=== PATIENT | female | born 1975 | race African-American/Black ===

== ENCOUNTER 2025-03-02 11:12 | Outpatient (AMB) | payer OTHER, SELFPAY ==
--- NOTE | 2025-03-02 11:17 | MHC.PC.OV ---
Vital Signs 03/02/25 11:18 Height 5 ft 1.02 in Weight 124 lb BMI 23.4 BP 106/76 Blood Pressure Location Lt brachial Position Sitting Respiration 14 Pulse 66 Pulse Source Pulse Oximeter Temp 97.9 F Temp Source Oral Pulse Oximetry (%) 100 Oxygen Delivery Method Room Air Intake Visit Reasons: BUCK from [facility]/ [facility] Intake Note: New patient visit Bioinformatics Specialist Required: No Allergies animal dander Allergy (Unknown, Verified 03/02/25 10:57) Unknown shellfish derived Allergy (Unknown, Verified 03/02/25 10:57) Unknown avocodo Allergy (Unknown, Uncoded 03/02/25 10:57) Unknown Medication List - Last Reconciled 03/02/25 by Soni Torres PA-C albuterol sulfate 90 mcg/actuation (Ventolin HFA) 2 puffs inhalation Q6H PRN fluticasone propionate 50 mcg/actuation 2 sprays intranasal DAILY PRN hydroxyzine HCl 25 mg PO TID levothyroxine 25 mcg PO DAILY lorazepam 1 mg PO DAILY meloxicam mg PO DIRECTED pantoprazole 40 mg PO DAILY sertraline 25 mg PO DAILY Tobacco use date assessed: 03/02/25 Dental Screening Dental Screen Date: 03/02/25 Did you have a dental visit in the last 12 months?: Yes Did you have a dental problem in the last 6 months where you did not have access to dental care?: No Was dental information given to patient?: Patient has dentist HPI BUCK from [facility]/ [facility] HPI Details Patient is a 49-year-old female who presents today to [facility]. She is transferring from [facility]. Reports a significant past medical history of anxiety, food allergies, GERD, generalized anxiety, liver lesion, hypothyroidism. She was seen recently in the ER on 01/19/2025 for presyncope. She was then followed by her [facility] PCP on 02/02/2025. She had a referral to Neurology in [facility]. She also had a sleep study ordered for her insomnia in his 7 day Zio monitor ordered and a Cardiology consult placed. CV: Blood pressure today in the office is 106/76. She completed zio 2 weeks ago. she does not yet have results. She has not been scheduled with cardiology. She had a normal echo in 2022. MRI brain, 08/21/2024-impression: 1. No acute/subacute infarct, mass, hemorrhage or other acute intracranial abnormality 2. Minimal T2/FLAIR hyperintense foci in the white matter, nonspecific but most likely reflecting saw vessel disease CT angio head and neck: Impression: No proximal occlusion or high-grade stenosis in the major arteries of the head or neck Neuro: she gets these episodes of feeling very weak and lightheaded. She states she has to lay down and her eyes are open but feels unable to respond. Feels almost paralyzed and states will feel weak after for a couple hours. She did see neuro locally who thought it was stress induced or related to her thyroid. Her thyroid has been well controlled and she did not feel stressed the last time it happened. She had just eaten lunch. She does not know what triggered but it has happened at least 5 x in the last few years. No bowel or bladder incontinence. She's scheduled with [facility]. Psych: still really struggling with falling asleep and staying asleep. Hydroxyzine is somewhat effective. She does not like having to take anything. Msk: left hip pain and lumbar pain for the last year or so. She did have an MRI showing disc herniation. She has tried an epidural injection and states that it caused constant pain. States that she will never follow with [facility] again but is interested in a 2nd opinion. Document Advisor: UTD- interested in hrt Mammo: within last 6 months Colonoscopy: 2021 fam hx: father prostate, maternal grandmother cervical ca, maternal uncle colon ca, maternal uncle pancreatic, maternal aunt breast cancer, paternal aunt breast ca PFSH Medical History (Updated 03/02/25 @ 11:47 by Soni Torres PA-C) H/O mammogram Surgical History (Updated 03/02/25 @ 10:58 by Tatiana Parker CMA) H/O endoscopy H/O section H/O colonoscopy Family History (Updated 03/02/25 @ 10:55 by Tatiana Parker CMA) Father FH: prostate cancer Mother AA (alcohol abuse) Fibroid Maternal Grandmother Cancer Stroke Other Cancer of breast Substance abuse Social History Housing: House Patient Tobacco Use Status: Never used Tobacco e-Cigarette/Vaping Use: Never Used Second Hand Smoke Exposure: No service: No Current occupational status: employed Current occupation: Manager [employer] Current occupational exposures/hazards: Yes Cognitive needs: No Hearing needs: No Vision needs: No Questionnaire PHQ-9 Over the last 2 weeks, how often have you been bothered by any of the following problems? 1. Little interest or pleasure in doing things: several days 2. Feeling down, depressed, or hopeless: several days 3. Trouble falling or staying asleep, or sleeping too much: several days 4. Feeling tired or having little energy: several days 5. Poor appetite or overeating: not at all 6. Feeling bad about yourself - or that you are a failure or have let yourself or your family down: not at all 7. Trouble concentrating on things, such as reading the newspaper or watching television: several days 8. Moving or speaking so slowly that other people could have noticed. Or the opposite - being so fidgety or restless that you have been moving around a lot more than usual: not at all 9. Thoughts that you would be better off or of hurting yourself in some way: not at all Total score: 5 Source: Developed by Drs. Jaguar Early, Taylor Lutz, Cecilio Mcnamara and colleagues, with an educational frank from [employer]. Thrive Questionnaire I am a: Patient What is your living situation today?: I have a steady place to live Within the past 12 months, did the food you bought not last and you didn't have the money to get more?: Never true Within the past 12 months, did you worry whether your food would run out before you got money to buy more?: Never true Do you have trouble paying for medicines?: No Do you have trouble getting transportation to medical appointments?: No Do you have trouble paying your heating and electricity bill?: No Do you have trouble taking care of your child, family member or friend?: No Do you have trouble with day-to-day activities such as bathing, preparing meals, shopping, managing finances, etc.?: No Are you currently unemployed and looking for a job?: No Are you interested in more education?: No Please select the resources that you would like help with: None Currently or been in a relationship where the following occur: No concerns reported THRIVE Score: 0 AUDIT C Alcohol Use Questionnaire (AUDIT-C) 1. How often do you have a drink containing alcohol?: Never 3. How often do you have six or more drinks on one occasion?: Never Total Score: 0 LOURDES-7 AMB Questionnaire LOURDES-7 Date LOURDES - 7 assessed: 03/02/25 Feeling nervous, anxious, or on edge: 1 = Several days Not being able to stop or control worryin = More than half the days Worrying too much about different things: 2 = More than half the days Trouble relaxin = Several days Being so restless that it is hard to sit still: 0 = Not at all Becoming easily annoyed or irritable: 1 = Several days Feeling afraid as if something awful might happen: 1 = Several days Total LOURDES-7 score (0-4 normal; 5-9 mild; 10-14 moderate; 15-21 severe): 8 Source: Developed by Drs. Jaguar Early, Taylor Lutz, Cecilio Mcnamara and colleagues, with an educational frank from [employer]. Physical exam (Primary Care) Vital Signs: Last Vital Signs Temp 97.9 F 03/02/25 11:18 Pulse 66 03/02/25 11:18 Resp 14 03/02/25 11:18 BP 106/76 03/02/25 11:18 Pulse Ox 100 03/02/25 11:18 Oxygen Delivery Method Room Air 03/02/25 11:18 BMI result Body Mass Index 23.4 Tobacco/Smoking Status: Tobacco use Status Tobacco use date assessed 03/02/25 03/02/25 11:21 Patient Tobacco Use Status Never used Tobacco 03/02/25 11:21 e-Cigarette/Vaping Use Never Used 03/02/25 11:21 PHQ-9: PHQ-9 Score PHQ-9: Total score 5 03/02/25 11:21 Currently or been in a relationship where the following occur: No concerns reported Const Orientation/consciousness: patient oriented x3 HENMT Ears: hearing grossly normal bilaterally Neck Thyroid: Thyroid normal Lymphatic: no lymphadenopathy noted Resp Auscultation: clear to auscultation bilaterally Cardio Rate: regular rate Rhythm: regular rhythm Heart sounds: S1 normal heart sound present and S2 normal heart sound present GI Inspection: Yes normal to inspection Palpation (GI): Soft to palpation and Other GI palpation findings present (nontender, no cva tenderness) Auscultation: normoactive bowel sounds Rectal Exam - Female: deferred Skin General skin exam: no rashes or lesions noted Neuro General: patient oriented x3, gait normal and no focal motor deficits Coding Level of Care Code New Pt Level 4 (44455) Complex EM visit Add On G2211 Diagnoses Pre-syncope R55 Lumbar pain with radiation down left leg M54.50; M79.605 Left hip pain M25.552 GERD (gastroesophageal reflux disease) K21.9 Generalized anxiety disorder F41.1 Insomnia G47.00 Assessment & Plan Assessment & Plan (1) Pre-syncope: Code(s): R55 - Syncope and collapse Category: Medical Plan: seeing neurology in May Has been referred to Cardiology. Recently were a Zio monitor. Being for test results. labs ordered ? Related to panic. We will try lorazepam if needed. (2) Lumbar pain with radiation down left leg: Code(s): M54.50 - Low back pain, unspecified; M79.605 - Pain in left leg Category: Medical Plan: Referral to physiatry (3) Left hip pain: Code(s): M25.552 - Pain in left hip Category: Medical Plan: As above (4) GERD (gastroesophageal reflux disease): Code(s): K21.9 - Gastro-esophageal reflux disease without esophagitis Category: Medical Plan: Controlled with pantoprazole. Has followed with GI. (5) Generalized anxiety disorder: Code(s): F41.1 - Generalized anxiety disorder Category: Medical Plan: stable Declines using Zoloft. Never actually took this (6) Insomnia: Code(s): G47.00 - Insomnia, unspecified Category: Medical Plan: sleep study pending We will try trazodone. Discussed risks and benefits and adverse effects of this medication. Plan Given significant family history of cancer we will refer to Genetics. Orders: Orders Complete Blood Count Auto Diff Today F41.1 - Generalized anxiety disorder, G47.00 - Insomnia, unspecified, K21.9 - Gastro-esophageal reflux disease without esophagitis, M25.552 - Pain in left hip, M54.50 - Low back pain, unspecified, M79.605 - Pain in left leg, R55 - Syncope and collapse Magnesium Today F41.1 - Generalized anxiety disorder, G47.00 - Insomnia, unspecified, K21.9 - Gastro-esophageal reflux disease without esophagitis, M25.552 - Pain in left hip, M54.50 - Low back pain, unspecified, M79.605 - Pain in left leg, R55 - Syncope and collapse Lipid Panel Today F41.1 - Generalized anxiety disorder, G47.00 - Insomnia, unspecified, K21.9 - Gastro-esophageal reflux disease without esophagitis, M25.552 - Pain in left hip, M54.50 - Low back pain, unspecified, M79.605 - Pain in left leg, R55 - Syncope and collapse IRON PROFILE Today F41.1 - Generalized anxiety disorder, G47.00 - Insomnia, unspecified, K21.9 - Gastro-esophageal reflux disease without esophagitis, M25.552 - Pain in left hip, M54.50 - Low back pain, unspecified, M79.605 - Pain in left leg, R55 - Syncope and collapse Ferritin Today F41.1 - Generalized anxiety disorder, G47.00 - Insomnia, unspecified, K21.9 - Gastro-esophageal reflux disease without esophagitis, M25.552 - Pain in left hip, M54.50 - Low back pain, unspecified, M79.605 - Pain in left leg, R55 - Syncope and collapse Hemoglobin A1c Today E16.2 - Hypoglycemia, unspecified, G47.00 - Insomnia, unspecified, R55 - Syncope and collapse, R73.01 - Impaired fasting glucose Comprehensive [place]. Panel Fast Today F41.1 - Generalized anxiety disorder, G47.00 - Insomnia, unspecified, K21.9 - Gastro-esophageal reflux disease without esophagitis, M25.552 - Pain in left hip, M54.50 - Low back pain, unspecified, M79.605 - Pain in left leg, R55 - Syncope and collapse Vitamin B12 and Folate Today F41.1 - Generalized anxiety disorder, G47.00 - Insomnia, unspecified, K21.9 - Gastro-esophageal reflux disease without esophagitis, M25.552 - Pain in left hip, M54.50 - Low back pain, unspecified, M79.605 - Pain in left leg, R55 - Syncope and collapse TSH reflex Free T4 Today F41.1 - Generalized anxiety disorder, G47.00 - Insomnia, unspecified, K21.9 - Gastro-esophageal reflux disease without esophagitis, M25.552 - Pain in left hip, M54.50 - Low back pain, unspecified, M79.605 - Pain in left leg, R55 - Syncope and collapse UA CC w/rflx Micro + Cult Today F41.1 - Generalized anxiety disorder, G47.00 - Insomnia, unspecified, K21.9 - Gastro-esophageal reflux disease without esophagitis, M25.552 - Pain in left hip, M54.50 - Low back pain, unspecified, M79.605 - Pain in left leg, R30.0 - Dysuria, R55 - Syncope and collapse Microalbumin, Random (w Creat) Today F41.1 - Generalized anxiety disorder, G47.00 - Insomnia, unspecified, K21.9 - Gastro-esophageal reflux disease without esophagitis, M25.552 - Pain in left hip, M54.50 - Low back pain, unspecified, M79.605 - Pain in left leg, R55 - Syncope and collapse Vitamin D 25-OH Total Today F41.1 - Generalized anxiety disorder, G47.00 - Insomnia, unspecified, K21.9 - Gastro-esophageal reflux disease without esophagitis, M25.552 - Pain in left hip, M54.50 - Low back pain, unspecified, M79.605 - Pain in left leg, R55 - Syncope and collapse Insulin Today E16.2 - Hypoglycemia, unspecified, G47.00 - Insomnia, unspecified, R55 - Syncope and collapse Referrals Physiatry Referral M25.552 - Pain in left hip, M54.50 - Low back pain, unspecified, M79.605 - Pain in left leg Genetics Referral Z80.0 - Family history of malignant neoplasm of digestive organs, Z80.3 - Family history of malignant neoplasm of breast Medications: New levothyroxine 25 mcg PO DAILY 90 tabs 3RF pantoprazole 40 mg PO DAILY 90 tabs 2RF trazodone 50 mg PO BEDTIME PRN 90 tabs 0RF sleep lorazepam 0.5 mg PO DAILY PRN 30 tabs 0RF anxiety 30 days
[2025-03-02 11:18] VITALS: BP 106/76; PULSE 66; RESP 14; TEMP 36.6; O2SAT 100; BMI 23.4
--- OUTSIDE RECORDS SUMMARY | 2025-03-02 14:07 | XMS_ITS | Clinical Summary ---
Author Organization [facility] Address [address] [place] [address] Care Team Providers Care Business Intelligence Engineer Name Role Phone Kiesha Jesus MD Primary Care Provider + Allergies No known active allergies Medications No known medications Active Problems Problem Noted Date Diagnosed Date Antiphospholipid antibody positive 06/18/2020 Chronic GERD 10/20/2017 Overview: Overview: Eval 09/2017 Dr. Norman Epigasrtic pain - on PPI Elevated antinuclear antibody (MADELIN) level 2017 Social History Tobacco Use Types Packs/Day Years Used Date Smoking Tobacco: Never Smokeless Tobacco: Never Alcohol Use Standard Drinks/Week Comments No 0 (1 standard drink = 0.6 oz pur e alcohol) Sex and Gender Information Value Date Recorded Sex Assigned at Female 05/25/2020 11:15 AM EST Gender Identity Not on file Sexual Orientation Not on file Last Filed Vital Signs Vital Sign Reading Time Taken Comments Blood Pressure 146/75 06/18/2020 11:46 AM EST Pulse 66 06/18/2020 11:46 AM EST Temperature 36.3 C (97.3 F) 06/18/2020 11:46 AM EST Respiratory Rate - - Oxygen Saturation - - Inhaled Oxygen Concentration - - Weight 59.4 kg (131 lb) 06/18/2020 11:46 AM EST Height 154.9 cm (5' 1 ) 06/18/2020 11:46 AM EST Body Mass Index 24.75 06/18/2020 11:46 AM EST Plan of Treatment Health Maintenance Due Date Last Done Comments Hepatitis B Vaccines (1 of 3 - 3-dose series) 1973 Hepatitis C Screening 1973 Depression Screening 1985 Preventative Health Evaluation 1991 Cervical Cancer Screening (Pap Smear) 1994 Colon Cancer Screening (Colonoscopy) 2018 Breast Cancer Screening (Mammogram) 2023 Shingrix-Zoster Vaccine (1 o f 2) 2023 COVID-19 Vaccine (3 - 2024-2 6 season) 2024 06/01/2020, 05/04/2020 Influenza Vaccine (#1) 2024 DTap / Tdap / Td (2 - Td or Tdap) 12/04/2027 12/03/2017 Pneumococcal Vaccine Aged Out No long er eligible based on patient's age to complete this topic RSV Ped < 20 months Aged Out No longe r eligible based on patient's age to complete this topic Care Teams Business Intelligence Engineer Relationship Specialty Start Date End Date Kiesha Jesus MD [address] [facility] [address] [place] [phone] PCP - General Internal Medicine 06/18/20
--- OUTSIDE RECORDS SUMMARY | 2025-03-02 14:07 | XMS_ITS | Clinical Summary ---
Author Organization [facility] Address [address] [place] [address] [address] [place] [address] Phone Care Team Providers Care Nurseryperson Name Role Phone Yulissa Guillen Primary Care Provider Encounters Date Type Department Care Team Description 02/20/2025 Transcribe Orders [facility] - Virtual Department [address] [place] [address] Yulissa Guillen PA from Last 3 Months Social History Tobacco Use Types Packs/Day Years Used Date Smoking Tobacco: Never Assessed Education Answer Date Recorded Are you interested in more education? Not on sanam e 02/20/2025 Are you concerned about learning? Not on file 02/20/2025 No 02/20/2025 No 02/20/2025 Digital Access Answer Date Recorded No 02/20/2025 No 02/20/2025 Reliable internet access at home? Not on file 02/20/2025 Device with a working camera? Not on file Comments Unknown Sex and Gender Information Value Date Recorded Sex Assigned at Not on file Legal Sex Female 2:11 PM EST Gender Identity Not on file Sexual Orientation Not on file Plan of Treatment Upcoming Encounters Date Type Department Care Team (Late st Contact Info) Description 05/29/2025 1:00 PM EST Office Visit [facility] [address], [address] [place] [address] Stevan Hooks MD [address] [place] [phone] [email or web address] Medical Devices Not on file Insurance [facility] [employer] [facility] Care Teams Nurseryperson Relationship Specialty Start Date End Date Yulissa Guillen PA [address] [place] [address] PCP - General Physician [employer] 02/20/25 03/05/25 Additional Source Comments The information contained in this document represents components of the legal health record. It is not the complete legal health record.[facility]
== END 2025-03-02 12:01 | disposition home or self-care (01) ==
LOC: HO.HMCFM 11:12
PROVIDERS: PCP Physician Assistant; Visit Provider Physician Assistant
DX: R55 Syncope and collapse (principal); M54.50 Low back pain, unspecified; M79.605 Pain in left leg; M25.552 Pain in left hip; K21.9 Gastro-esophageal reflux disease without esophagitis; F41.1 Generalized anxiety disorder; G47.00 Insomnia, unspecified

== ENCOUNTER 2025-03-28 08:37 | Outpatient (REF) | payer OTHER, SELFPAY ==
[2025-03-28 13:35] LABS: Appearance Urine Clear; Glucose Urine UA Negative (Negative); PH 7.0 (5.0-9.0); Specific Gravity - Urine <= 1.005 (1.005-1.025)
[2025-03-28 13:40] LABS: MANUAL DIFF FLAG NO
[2025-03-28 14:01] LABS: Hematocrit 41.7 % (37.0-47.0); Hemoglobin 13.4 g/dl (12.0-16.0); Imm Gran Abs Auto 0.02 X10*3/uL (0.00-0.03); Imm Gran Pct Auto 0.3 % (0.0-0.4); Lymphocytes Absolute Auto 2.0 X10*3/uL (1.2-4.9); Mean Corpuscular HGB Conc 32.1 g/dl (31.0-35.0); Mean Corpuscular Hemoglobin 29.5 pg (27.0-33.0); Mean Corpuscular Volume 91.9 fL (80.0-98.0); NRBC Abs Auto 0.000 X10*3/uL (0.0-0.012); NRBC Pct Auto 0.0 /100WBC (0.0-0.2); Platelet Count 256 X10*3/uL (160-400); Red Blood Count 4.54 X10*6/uL (4.20-5.50); White Blood Count 5.8 X10*3/uL (4.8-10.8)
[2025-03-28 14:31] LABS: Alanine Aminotransferase 8 U/L (0-31); Albumin Level 4.9 g/dL (3.5-5.0); Alkaline Phosphatase 49 U/L (39-117); Anion Gap 9 (12-20); Aspartate Amino Transferase 24 U/L (5-31); Blood Urea Nitrogen 12 mg/dL (9-16); Calcium 9.6 mg/dL (8.4-10.2); Carbon Dioxide 27 mmol/L (22-29); Chloride 108 mmol/L (96-108); Cholesterol 226 mg/dL (<200); Estimated Glomerular Filt Rate > 60; HDL Cholesterol 68 mg/dL (>40); Iron 50 mcg/dL (30-160); Magnesium 2.2 mg/dL (1.6-2.6); Percent Iron Saturation 19 % (15-50); Potassium 4.4 mmol/L (3.3-5.1); Sodium 140 mmol/L (135-145); Total Iron Binding Capacity 262 mcg/dL (228-428); Total Protein 7.9 g/dL (6.5-8.0); Triglycerides 96 mg/dL (<150); Unsaturated Iron Binding 212 ug/dL
[2025-03-28 14:36] LABS: Ferritin 230 ng/mL (10-250)
[2025-03-28 15:21] LABS: Folate 11.1 ng/mL (> or = 4.0); Vitamin B12 560 pg/mL (200-900)
== END 2025-03-28 08:38 | disposition home or self-care (01) ==
LOC: HO.HKASLDS 08:37
PROVIDERS: PCP Physician Assistant; Visit Provider Physician Assistant
DX: M54.16 Radiculopathy, lumbar region (principal); M47.816 Spondylosis without myelopathy or radiculopathy, lumbar region; F41.1 Generalized anxiety disorder; K21.9 Gastro-esophageal reflux disease without esophagitis; M54.50 Low back pain, unspecified; M79.605 Pain in left leg; G47.00 Insomnia, unspecified; R55 Syncope and collapse; M25.552 Pain in left hip; R73.01 Impaired fasting glucose; R30.0 Dysuria; Z13.6 Encounter for screening for cardiovascular disorders
CPT/HCPCS: 36415; 80053; 80061; 81003; 82043; 82306; 82570; 82607; 82728; 82746; 83036; 83525; 83540; 83735; 84443; 85025

== ENCOUNTER 2025-03-28 09:11 | Outpatient (AMB) | payer OTHER, SELFPAY ==
[2025-03-28 09:14] VITALS: BMI 23.4
--- NOTE | 2025-03-28 09:14 | A.PHYSOV ---
Vital Signs 03/28/25 09:14 Height 5 ft 1 in Weight 124 lb BMI 23.4 Intake Visit Reasons: [facility] [place], & left leg & thigh pain Intake Note: Patient is a 49 year old female in office today as new patient for low back pain, left leg and thigh pain. 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 The pain is primarily on the left side in the piriformis area, is worse at night when turning, and is exacerbated by prolonged standing or sitting. She reports the pain limits her ability to work out as she used to. An MRI revealed an L5 disc herniation, and after a subsequent epidural steroid injection, she experienced excruciating pain, leading to an emergency room visit. A follow-up MRI showed an L5-S1 pinched nerve, which was not mentioned prior to the injection, and she has had daily pain ever since. 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 Previous treatments include two courses of physical therapy, with the most recent course completed earlier this year, and spinal decompression, which she stopped after eight weeks due to cost. She has been prescribed meloxicam and gabapentin but does not take them, and she finds no relief from [id number] anti-inflammatory medications like ibuprofen. She remains active, walking 15,000-16,000 steps per day. I reviewed the referring provider's no prior to consultation. Pain Description - Onset: The patient has had consistent daily pain for about four years. - Location: The pain is primarily on the left side, in the piriformis and gluteal area. - Severity: Current pain level is a 4 or 5 out of 10. - Quality: The pain is described as pressure, especially when turning at night. - Radiation: The pain sometimes goes into her leg but does not shoot down. - Exacerbating factors: Exacerbated by prolonged standing or sitting, and turning in bed at night. - Interference with function: The pain prevents her from working out as she did previously. Results - MRI: Findings include an L5 disc herniation and subsequent finding of an L5-S1 pinched nerve, with compression of the left S1 nerve root. [facility] Medical History H/O mammogram Surgical History H/O endoscopy H/O section H/O colonoscopy Family History Father FH: prostate cancer Mother AA (alcohol abuse) Fibroid Maternal Grandmother Cancer Stroke Other Cancer of breast Substance abuse Social History Housing: House Patient Tobacco Use Status: Never used Tobacco e-Cigarette/Vaping Use: Never Used Second Hand Smoke Exposure: No service: No Current occupational status: employed Current occupation: [employer] principle Current occupational exposures/hazards: Yes Cognitive needs: No Hearing needs: No Vision needs: No Review of Systems Narrative Review of Systems - Musculoskeletal: Reports chronic low back pain, primarily on the left side in the piriformis area. - Neurological: Reports a sensation of feeling tilted while standing or walking and occasional, non-radiating pain into her leg. - Sleep: Reports disturbed sleep due to pain when turning at night. - Psychiatric: Reports PTSD from a previous injection procedure. Physical Exam Exam Exam: Physical Exam - Back: No tenderness to palpation over the spine. - Musculoskeletal: Tenderness to palpation over the left lateral/gluteal region. - Range of Motion: Lumbar extension elicits pain. - Neurologic: Motor strength is intact with foot and thigh movements. - Neurologic: Sensation to touch is symmetric in the lower extremities. - Neurologic: Straight leg raise is positive on the left, reproducing buttock pain; negative on the right. Vital Signs: BMI result Body Mass Index 23.4 Assessment & Plan Assessment & Plan (1) Lumbar radiculopathy: Code(s): M54.16 - Radiculopathy, lumbar region Category: Medical (2) Lumbar spondylosis: Code(s): M47.816 - Spondylosis without myelopathy or radiculopathy, lumbar region Category: Medical Plan Pain Management - Affect: The patient is bothered by her inability to work out as she used to due to the pain. - Analgesia: Current pain level is 4-5/10. - Activities of Daily Living: The patient is able to function and walks up to 15,000-16,000 steps a day, but she cannot work out the way she did before her pain started. - Aberrant Drug Related Behaviors: The patient reports not taking her prescribed meloxicam and gabapentin and is generally avoidant of pain medications. Plan Patient was informed and verbally consented to the use of an ambient scribe for clinic note documentation during this visit. 1. Chronic Low Back Pain With Left-Sided Sciatica The patient's chronic low back pain with left-sided buttock pain is attributed to a disc herniation at L5-S1 compressing the left S1 nerve root. A discussion was held regarding treatment options, including physical therapy, housekeeper child care, acupuncture, medications, injections, and surgery. Recommended daily use of a turmeric supplement containing bioperine for its anti-inflammatory properties. Advised that Gabapentin, which she has but does not take, can be used as needed for severe pain or to aid sleep, noting it is better for the kidneys than anti-inflammatory medications. Encouraged continued activity such as walking, biking, swimming, and yoga, but advised against using a weighted vest or heavy weights for squats. An epidural steroid injection is an option for severe pain but the patient is hesitant due to a past negative experience and PTSD. She was informed the disc could improve and shrink over time. The plan is to continue with conservative management and follow up as needed. 2. Post-Traumatic Stress Disorder The patient reports PTSD from a previous epidural steroid injection that resulted in a severe pain exacerbation. Her hesitancy to receive another injection was acknowledged, and it was explained that sedation is an option if she decides to pursue an injection in the future. It was agreed to defer this option and focus on conservative therapies first. Discussion Notes I discussed with the patient that her chronic left-sided buttock and leg pain is likely nerve pain originating from the L5-S1 disc herniation compressing her left S1 nerve root, as seen on her MRI. We reviewed the full spectrum of treatment options, including conservative measures, medications, injections, and surgery. I recommended conservative management including daily turmeric with bioperine for inflammation and using her prescribed gabapentin as needed for flares or to help with sleep, highlighting its kidney-sparing profile compared to NSAIDs. I encouraged her to remain active with walking, biking, and yoga, while advising against specific activities like using a weighted vest or heavy back squats. We acknowledged her PTSD from a prior epidural steroid injection. I explained that while an injection is an option for severe pain and can be done under sedation, it is not immediately necessary. I also informed her that it is common to feel nerve sensation during the procedure as the nerve cannot be visualized on x-ray. The patient agreed to try the recommended conservative measures before considering more invasive options. She may benefit from left S1 TFESI. Patient Instructions - Continue to stay active with activities like walking, biking, swimming, and yoga. - Do not use a weighted vest or place bars on your back for exercises like squats. - You can try taking a daily turmeric supplement that includes black pepper (bioperine) to help with inflammation. - You may use your prescribed gabapentin if you are having a bad day with pain or having a hard time sleeping. - An epidural steroid injection is an option if your pain becomes severe, but you do not need one at this time. - Contact us if you need anything or if your symptoms worsen. Coding Level of Care Code Tele New Pt Level 3 (81255) Diagnoses Lumbar radiculopathy M54.16 Lumbar spondylosis M47.816
== END 2025-03-28 09:57 | disposition home or self-care (01) ==
LOC: HO.HPHYS 09:12
PROVIDERS: PCP Physician Assistant; Visit Provider Physician Assistant
DX: M54.16 Radiculopathy, lumbar region (principal); M47.816 Spondylosis without myelopathy or radiculopathy, lumbar region
CPT/HCPCS: 99203